=== PATIENT | male | born 1990 | race Caucasian/White ===

== ENCOUNTER → 2016-07-25 | Outpatient (CLI) | payer OTHER ==
[~2016-07-25] VITALS: Ht 165.1 cm; Wt 75.5 kg
[2016-07-25 15:56] VITALS: BP 135/94; PULSE 79; Ht 165.1 cm; Wt 75.5 kg
== END | disposition home or self-care (01) ==
LOC: C.NEUR 14:10
PROVIDERS: ATTEND Internal Medicine Pulmonary Disease
DX: R53.83 Other fatigue (principal); G47.19 Other hypersomnia; G47.9 Sleep disorder, unspecified

== ENCOUNTER → 2016-08-12 | Outpatient (CLI) | payer OTHER ==
--- NOTE | 2016-08-13 06:25 | PAP/PSG TECHNICIAN REPORT ---
[facility] Delivery Route Driver Polysomnogram Report Study name: None Report date: 08/13/2016 Study date: 08/12/2016 Referring Physician: Brandyn Duarte M.D. Name: CANDELARIACESAR Interpreting Physician: Brandyn Duarte M.D. Date of : 1990 Delivery Route [facility] Sex: Male Age: 25 StudyType: PSG Weight: 165 lbs Height: 25 years, Height 5' 5" Neck Circum: 14 inches BMI: 27.45 Medications: Fluticasone 50 MCG/ACT, Naproxen Sodium 220 MG Patient History 25 yr. old male here for a diagnostic sleep study. Patient complains of fragmented sleep architecture, restless sleep, fatigue and EDS. Patients [place] Sleepiness Scale score is 8/24. Parameters Monitored NPSG: E1-M2, E2-M1, Fp1-M2, Fp2-M1, F3-M2, F4-M2, F4-M1, C3-M2, C4-M2, C4-M1, O1-M2, O2-M2, O2-M1, T3-M2, T4-M1, P3-M2, P4-M1, CHIN1, CHIN2, HR, EKG, Legs, PFLOW, SNOR, FLOW, CFLOW, Tidal Volume, THOR, ABDO, SpO2, PLTH, CPRESS, ETCO2 Wave, ETCO2, pH Sleep Architecture Sleep Stages Time at Lights Off 10:07:40 PM STAGES Time (min.) TST (%) Time at Lights On 5:46:40 AM Wake 63.5 -- Total Recording Time (TRT) 422.00 min. N1 22.5 6 Total Sleep Period (TSP) 418.5 min. N2 190.0 53 Total Sleep Time (TST) 358.5min. N3 68.0 19 Awake Time 63.5 min. REM 78.0 22 Wake after Sleep Onset 60.0 min. Sleep Efficiency (SE) 85 % Sleep Onset Latency (MINA) 40.5 min. Number of Stage 1 Shifts None Awakenings 18 Stage Changes 97 Number of REM periods 10 REM 78.0 22 REM Latency 151.0 min. NREM 280.5 78 Body Position Analysis Supine Right Left Side Prone Vertical Total Sleep Time (min.) 205.8 104.8 52.3 157.17 0.0 0.0 Total Sleep Time (%) 56% 29% 15% 44 0% N/A% Total Sleep Time REM (min.) 33.5 44.5 0.0 None 0.0 0.0 Total Sleep Time NREM (min.) 167.8 60.3 52.3 None 0.0 0.0 Intermittent Wake (min.) 4.5 17.2 41.8 None 0.0 0.0 Total Sleep Period (%) 49% None None None None None Arousals Myoclonus (PLM) * Events Count Index Events Count Index Spontaneous 10 2 Events Awake (PLMW) 134 126.6 Respiratory 0 0.0 Events Asleep w/ Arousal (PLMA) 26 4.4 PLM 26 4 Events Asleep w/o Arousal (PLMS) 80 13.4 Snoring 9 2 Total Asleep 106 17.7 Total 45 8 Total 240 34 Respiratory Analysis * CA OA MA CH H RERA Total Count 0 0 0 0 3 0 3 Index 0.0 0.0 0.0 0 0.5 0 0.5 Mean Duration 0.0 0.0 0.0 0.00 20.0 0.0 20.0 Longest Duration 0.0 0.0 0.0 0.00 0.0 0.0 30.0 Respiratory Event Summary Total Supine ~Supine Right Left Prone REM NREM Apneas Count 0 0 0 0 0 N/A 0 0 Index 0.0 0 0 0.0 0.0 N/A 0 0 Hypopneas (4% Desat) Count 3 1 2 2 0 N/A 1 2 Index 0.5 0.3 1 1.1 0.0 N/A 0.8 0.4 Apneas & All Hypopneas Count 3 1 2 2 0 N/A 1 2 Index 0.5 0 1 1 0 N/A 0.8 0.4 Respiratory Events ([employer] Analyst+All Hyp+RERA) Count 3 1 2 2 0 N/A 1 2 Index 0.5 0 1 1.1 0.0 N/A 0.8 0.4 Respiratory Related Arousal Count 0 1 0 0 0 N/A 0 0 Index 0.0 0 0 0 0 N/A 0 0 Snoring Analysis Supine Right Left Prone REM NREM Total Snore duration 1.3 min Snores count 13 3 6 N/A 4 18 22 Snore mean duration 3.6 Sec Snores index 4 2 7 N/A 3.1 3.9 3.7 TST with snoring (%) 0.4% Desaturation Event Summary: Minimum %SpO2 Event Count Mean/Min/Max Duration(sec.) Desaturation Index % Time In Bed > 90 6 25.3 / 13.3 / 40.5 0.9 99.9 86 - 90 0 N/A 0.0 0.1 81 - 85 1 14.0 / 14.0 / 14.0 351.2 0.0 76 - 80 0 N/A 0.0 0.0 71 - 75 0 N/A 0.0 0.0 66 - 70 0 N/A 0.0 0.0 61 - 65 0 N/A 0.0 0.0 56 - 60 0 N/A 0.0 0.0 51 - 55 0 N/A 0.0 0.0 < 50 0 N/A 0.0 0.0 Total REM NREM Awake <50% 0.0 min. 0.0 min. 0.0 min. 0.0 min. 51 - 60% 0.0 min. 0.0 min. 0.0 min. 0.0 min. 61 - 70% 0.0 min. 0.0 min. 0.0 min. 0.0 min. 71 - 80% 0.0 min. 0.0 min. 0.0 min. 0.0 min. 81 - 90% 0.4 min. 0.0 min. 0.0 min. 0.4 min. 91 - 100% 415.3 min. 78.0 min. 280.4 min. 56.9 min. Average 96 97 96 96 Minimum SpO2 82 95 92 82 Desaturation Event Index 1.0 0.8 0.9 1.9 # Desat. Events below 89% 1 N/A N/A 1 Time(%) with Saturation below 89% 0.1 0.0 0.0 0.1 Time(min.) with Saturation below 89% 0.4 0.0 0.0 0.4 Time (mins) REM (mins) NREM (mins) % of TST SpO2 Below 90% N/A N/A NN/A 0.0 SpO2 Below 88% 0 0 0 0 Heart Rate Analysis Min (bpm) Max (bpm) Average (bpm) Awake 49 129 73 NREM 48 97 61 REM 48 91 62 Overall 48 97 61 Supplemental O2 Values Minimum O2 level: None Value Start Time End Time Delivery Route Driver Comments Mr. Candelaria slept in the right, left, and supine positions. No cardiac arrhythmia. PLMs noted. No bruxism noted. Snoring was noted and scored as a 1 on a scale of 0 through 5. (0=no snoring, 5=snoring loud enough to be heard through a closed door or down the [address]) Mr. Candelaria awoke to use the restroom once during the night. Mr. Candelaria stated, that was a normal night. The final report will be interpreted and signed by a sleep physician. The completed physician report will then be placed in the patient medical record. Therapy (cm H2O) 0 TIB (min.) 422.0 TST (min.) 358.5 Sleep Onset (min.) 40.5 REM Onset From Sleep (min.) 151.0 Sleep Efficiency % 85 Wakefulness (%) 14 Wakefulness (min.) 63.5 NREM 1 (%) 6 NREM 1 (min.) 22.5 NREM 2 (%) 53 NREM 2 (min.) 190.0 NREM 3 (%) 19 NREM 3 (min.) 68.0 REM (%) 22 REM (min.) 78.0 # Arousals 45 Arousal Index 8 # Snore 22 Snore Index 3.7 AHI 0.5 AHI Supine 0 AHI Non-Supine 1 NREM AHI 0.4 REM AHI 0.8 RDI 0.5 # Obstructive Apnea 0 # Central Apnea 0 # Mixed Apnea 0 # Hypopneas 3 RERAs 0 Total Respiratory Events 4 Time Below SpO2 89% (min.) 0.0 Mean NREM SpO2 (%) 96 Mean REM SpO2 (%) 97 Mean Sleep SpO2 (%) 96 Min NREM SpO2 (%) 92 Min REM SpO2 (%) 95 Position Supine (min.) 205.8 Position Non-supine (min.) 157.2 LM Index Sleep 17.7 LM Index NREM 16.5 LM Index REM 22.3 Mean Heart Rate (bpm) 61 Min Heart Rate (bpm) 48
--- NOTE | 2016-08-19 16:35 | POLYSOMNOGRAPH REPORT ---
CLINICAL DATA: A 25-year-old male referred by myself and Dr. Marques for evaluation of fragmented sleep architecture, restless sleep, fatigue, and excessive daytime sleepiness. His BMI is 27.45. SLEEP ARCHITECTURE: Total sleep period was 418.5 minutes. Total sleep time was 358.5 minutes divided between 280.5 minutes of non-REM sleep and 78 minutes of REM sleep. Sleep onset latency was delayed at 40.5 minutes. REM latency was slightly delayed at 151 minutes. Sleep efficiency was 85%. Wake after sleep onset was elevated at 60 minutes. Sleep consisted of stage N1 6%, N2 53%, N3 19%, REM 22%. AROUSAL DATA: Forty-five arousals were recorded for an index of 8 per hour. Twenty-six were due to PLM events. PLM DATA: Mildly elevated limb movements during sleep were noted. There were 106 limb movements during sleep noted for an index of 17.7 per hour with arousal index of 4.4 per hour. RESPIRATORY DATA: There was no evidence of clinically significant sleep apnea/hypopnea noted. The AHI was 0.5. There were 3 hypopneic episodes. The mean duration of hypopnea was 20 seconds. OXIMETRY DATA: No hypoxemia was seen. Oxygen vinita was 92%. Mean saturation was 96%. EKG: Heart rates ranged from 48 to 97 beats per minute. No arrhythmias were noted. ELECTROCARDIOGRAPH TECHNICIAN'S COMMENTS: The patient slept in the right, left, and supine positions. Snoring was mild rated 1 on a scale of 1-5. Mild elevated PLMs were noted. IMPRESSION: No evidence of clinically significant sleep apnea/hypopnea or nocturnal hypoxemia seen on this sleep study. The patient has mildly elevated limb movements during sleep possibly consistent with mild periodic limb movement disorder. Clinical correlation is needed. RECOMMENDATIONS: The patient will return to the sleep clinic for further recommendations. SILVER
== END | disposition home or self-care (01) ==
LOC: C.NEUR 20:00
PROVIDERS: ATTEND Internal Medicine Pulmonary Disease
DX: G47.19 Other hypersomnia (principal); R53.83 Other fatigue

== ENCOUNTER → 2016-09-23 | Outpatient (CLI) | payer OTHER ==
[~2016-09-23] VITALS: Ht 165.1 cm; Wt 73.2 kg
[2016-09-23 15:18] VITALS: BP 154/92; PULSE 99; Ht 165.1 cm; Wt 73.2 kg
== END | disposition home or self-care (01) ==
LOC: C.NEUR 15:03
PROVIDERS: ATTEND Internal Medicine Pulmonary Disease
DX: R53.83 Other fatigue (principal); G47.00 Insomnia, unspecified